=== PATIENT | male | born 1980 | race Two or more races ===

== ENCOUNTER 2021-08-27 14:52 | Emergency (ER) | payer OTHER, SELFPAY ==
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
[2021-08-27 15:52] VITALS: BP 143/85; PULSE 78; RESP 18; TEMP 36.7; O2SAT 100; BMI 27.4
[2021-08-27] MEDS: Acetaminophen Oral Liquid 650 MG/20.3 ML SOLUTION PO (15:58)
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
== END 2021-08-27 19:12 | disposition home or self-care (01) ==
PROVIDERS: Emergency Provider Emergency Medicine
DX: S13.4XXA Sprain of ligaments of cervical spine, initial encounter (principal); V43.53XA Car driver injured in collision with pick-up truck in traffic accident, initial encounter; Y93.89 Activity, other specified; Y92.410 Unspecified street and highway as the place of occurrence of the external cause; Y99.9 Unspecified external cause status
CPT/HCPCS: 70450; 72100; 72125; 73110; 73130; 99284